=== PATIENT | female | born 1955 | race Asian ===

== ENCOUNTER 2017-07-15 06:22 | Day surgery (SDC) | payer MEDICAID ==
[~2017-07-15] VITALS: Ht 147.3 cm; Wt 43.1 kg
[~2017-07-15 06:22] MED LIST: SODIUM CHLORIDE 0.9% 1,000 ML IV ONE
[2017-07-15] MEDS ORDERED: LIDOCAINE HCL 4% 50 ML SOLUTION TP ONE (06:23)
[2017-07-15] MEDS ORDERED: LIDOCAINE HCL 2% 5 ML JELLY TP ONE (06:23)
[2017-07-15] MEDS ORDERED: BENZOCAINE 20% 50 MCG/SPRAY 57 GM TP ONE (06:23)
[2017-07-15] MEDS ORDERED: ALBUTEROL SULFATE 2.5 MG/0.5 ML NEB SOLUTION NEB ONE (06:23)
[2017-07-15] MEDS ORDERED: MIDAZOLAM HCL 2 MG/2 ML VIAL ONE (08:05)
[2017-07-15] MEDS ORDERED: FentaNYL CITRATE-PF 100 MCG/2 ML VIAL ONE (08:05)
[2017-07-15] MEDS ORDERED: MethylPREDNISolone SOD SUCC 125 MG/2 ML VIAL IVP ONE (09:00)
[2017-07-15] MEDS ORDERED: MethylPREDNISolone SOD SUCC 125 MG/2 ML VIAL ONE (09:08)
[2017-07-15] MEDS ORDERED: OXYGEN THERAPY IH SCH (20:00)
== END 2017-07-15 10:40 | disposition home or self-care (01) ==
LOC: SURGERY 06:22
PROVIDERS: ATTEND Internal Medicine Critical Care Medicine
DX: J38.4 Edema of larynx (principal); B37.0 Candidal stomatitis; J84.111 Idiopathic interstitial pneumonia, not otherwise specified; I10 Essential (primary) hypertension; Z98.51 Tubal ligation status; Z86.11 Personal history of tuberculosis
CPT/HCPCS: 31623; 31624; 71045; 87015; 87070; 87077; 87186; 87205; 87220; 88108; 88184; 88185; 88312; J2250; J2930; J3010; J7030